=== PATIENT | male | born 1965 | race Caucasian/White ===

== ENCOUNTER 2018-05-29 09:43 | Day surgery (SDC) | payer OTHER ==
[2018-05-29] MEDS ORDERED: Lactated Ringer's 500 ML IV ONE (10:23)
[2018-05-29 10:31] VITALS: BMI 29.8
[2018-05-29] MEDS ORDERED: Propofol 10 mg/ml Inj (20 ML) ONE ×2 (11:02→11:45)
[2018-05-29 11:59] VITALS: TEMP 97.5; O2SAT 98
[2018-05-29 12:32] VITALS: BP 105/62; PULSE 56; RESP 14
== END 2018-05-29 13:45 | disposition home or self-care (01) ==
LOC: H.ENDO 09:43
PROVIDERS: ATTEND Internal Medicine Gastroenterology
DX: Z12.11 Encounter for screening for malignant neoplasm of colon (principal); K64.8 Other hemorrhoids; K57.30 Diverticulosis of large intestine without perforation or abscess without bleeding
CPT/HCPCS: 45378; J2001; J2704; J7120